=== PATIENT | male | born 1980 | race Caucasian/White ===

== ENCOUNTER 2018-12-04 00:49 | Emergency (ER) | payer OTHER ==
[~2018-12-04] VITALS: Ht 175.3 cm; Wt 100.0 kg
[2018-12-04] MEDS ORDERED: ibuprofen tablet 400 MG TABLET PO ONE (02:10)
--- NOTE | 2018-12-04 02:20 | NUR ---
Patient fitted with R wrist brace per MD order
[2018-12-04 02:34] VITALS: BP 152/76
== END 2018-12-04 02:37 | disposition home or self-care (01) ==
LOC: ER 00:50
DX: S63.501A Unspecified sprain of right wrist, initial encounter (principal); Z88.1 Allergy status to other antibiotic agents; X58.XXXA Exposure to other specified factors, initial encounter; Y93.89 Activity, other specified; Y92.89 Other specified places as the place of occurrence of the external cause; Y99.8 Other external cause status
CPT/HCPCS: 29125; 73110; 99283

== ENCOUNTER 2019-04-29 12:27 | Emergency (ER) | payer BC, OTHER ==
[~2019-04-29] VITALS: Ht 175.3 cm; Wt 102.3 kg
[2019-04-29] MEDS ORDERED: normal saline 1000ML IV soln IVB ONE (13:00)
[2019-04-29] MEDS ORDERED: ondansetron/PF 4mg/2ml inj IV ONE (13:00)
[2019-04-29] MEDS: morphine 4 MG/ML inj SYRINge IV PRN ×2 (13:10→15:28)
[2019-04-29 13:43] LABS: ALANINE AMINOTRANSFERASE 42 U/L (12-78); ALBUMIN 4.2 G/DL (3.4-5.0); ALBUMIN/GLOBULIN RATIO 1.2 (1.1-1.5); ALKALINE PHOSPHATASE 93 IU/L (46-116); ANION GAP 12 (8-16); ASPARTATE AMINO TRANSFERASE 23 U/L (10-37); BILIRUBIN,TOTAL 0.9 MG/DL (0.1-1.0); BLOOD UREA NITROGEN 10 MG/DL (7-18); BUN/CREATININE RATIO 8.7 (5.4-32.0); CALCIUM 9.2 MG/DL (8.5-10.1); CHLORIDE 107 MMOL/L (99-107); CREATININE 1.15 MG/DL (0.60-1.10); GLUCOSE 110 MG/DL (70-104); LIPASE 182 U/L (73-393); POTASSIUM 3.7 MMOL/L (3.5-5.1); SODIUM 144 MMOL/L (135-145); TOTAL CARBON DIOXIDE 24.6 MMOL/L (24-32); TOTAL PROTEIN 7.8 G/DL (6.4-8.2); eGFR 71 ML/MIN
[2019-04-29] MEDS ORDERED: FLO0.4C PO ×2 (14:02→15:11)
[2019-04-29] MEDS ORDERED: HYDR-3965 PO (14:02)
[2019-04-29 14:16] LABS: CLARITY,URINE CLEAR (Clear); COLOR,URINE YELLOW (Yellow); GLUCOSE, URINE NEGATIVE (Neg); KETONES,URINE NEGATIVE (Neg); LEUKOCYTE ESTERASE ,URINE TRACE (Neg); NITRITES, URINE NEGATIVE (Neg); OCCULT BLOOD,URINE MODERATE (Neg); PH,URINE 6.5 (4.8-8.0); PROTEIN,URINE NEGATIVE (Neg); UROBILINOGEN,URINE 0.2 E.U/dL (0.2-1.0)
[2019-04-29 14:20] LABS: UA COLLECTION TYPE CLN CATCH MIDSTREAM
[2019-04-29 14:26] LABS: RBC,URINE 20-50 /HPF (0-2)
[2019-04-29 14:27] LABS: BACTERIA,URINE NONE SEEN /HPF (Neg); MUCUS STRANDS NONE SEEN /LPF (Neg); SQUAMOUS EPITHELIAL CELL,UR FEW /LPF (FEW)
[2019-04-29 14:29] LABS: BASOPHILS % (AUTO) 0.2 % (0-1); EOSINOPHILS % (AUTO) 0.3 % (0-6); HEMATOCRIT 46.7 % (42.0-52.0); HEMOGLOBIN 15.7 g/dl (14.0-17.9); LYMPHOCYTES # (AUTO) 1.5 X10'3 (1.1-4.8); LYMPHOCYTES % (AUTO) 11.7 % (21-51); MEAN CORPUSCULAR HEMOGLOBIN 28.3 PG (27.0-31.0); MEAN CORPUSCULAR HGB CONC 33.6 g/dL (33.0-36.5); MEAN CORPUSCULAR VOLUME 84.3 FL (78-98); MEAN PLATELET VOLUME 9.3 FL (7.4-10.4); MONOCYTES # (AUTO) 0.6 X10'3 (0-0.9); MONOCYTES % (AUTO) 4.6 % (2-12); NEUTROPHILS # (AUTO) 10.9 X10'3 (1.8-7.7); NEUTROPHILS % (AUTO) 83.2 % (42-75); PLATELET COUNT 205 X10'3 (140-440); RED BLOOD COUNT 5.54 X10'6 (4.70-6.10); RED CELL DISTRIBUTION WIDTH 13.3 % (11.5-14.5); WHITE BLOOD COUNT 13.1 X10'3 (4.5-11.0)
[2019-04-29] MEDS ORDERED: CEPH500C5 PO (14:45)
[2019-04-29] MEDS ORDERED: cephalexin 250mg capsule PO ONE (15:00)
[2019-04-29] MEDS ORDERED: OXYC-145 PO (15:09)
[2019-04-29 15:46] VITALS: BP 167/103
== END 2019-04-29 15:54 | disposition home or self-care (01) ==
LOC: ER 12:28
DX: N23 Unspecified renal colic (principal); N20.0 Calculus of kidney; Z88.1 Allergy status to other antibiotic agents; Z79.2 Long term (current) use of antibiotics; Z79.899 Other long term (current) drug therapy
CPT/HCPCS: 36415; 74176; 80053; 81001; 83690; 85025; 87088; 96374; 96375; 96376; 99284; J2270; J2405; J7030